=== PATIENT | female | born 2000 | race Two or more races ===

== ENCOUNTER 2021-07-20 10:54 | Emergency (ER) | payer OTHER ==
[~2021-07-20] VITALS: Ht 162.6 cm; Wt 72.6 kg
[2021-07-20] MEDS ORDERED: ABILIFY2 MG (11:04)
== END 2021-07-20 13:11 | disposition home or self-care (01) ==
LOC: ER 10:54
DX: S40.862A Insect bite (nonvenomous) of left upper arm, initial encounter (principal); L03.114 Cellulitis of left upper limb